=== PATIENT | male | born 1985 | race Caucasian/White ===

== ENCOUNTER 2023-04-06 07:03 | Inpatient (IN) | payer OTHER ==
[~2023-04-06] VITALS: Ht 175.3 cm; Wt 72.4 kg
[2023-04-06 08:54] LABS: BASOPHILS ABSOLUTE AUTO 0.03 K/mm3 (0.00-0.23); BASOPHILS PERCENT AUTO 0 % (0-2); EOSINOPHILS ABSOLUTE AUTO 0.08 K/mm3 (0.00-0.68); EOSINOPHILS PERCENT AUTO 1 % (0-6); Hematocrit 38.6 % (37.0-53.0); Hemoglobin 13.2 g/dL (13.5-17.5); IMMATURE GRAN ABSOLUTE AUTO 0.05 K/mm3 (0.00-0.10); IMMATURE GRAN PERCENT AUTO 0 % (0-1); LYMPHOCYTES ABSOLUTE AUTO 1.46 K/mm3 (0.84-5.20); LYMPHOCYTES PERCENT AUTO 9 % (21-46); MONOCYTES ABSOLUTE AUTO 1.28 K/mm3 (0.16-1.47); MONOCYTES PERCENT AUTO 8 % (4-13); Mean Corpuscular HGB 29.2 pg (26.0-34.0); Mean Corpuscular HGB Conc 34.2 g/dL (31.5-36.5); Mean Corpuscular Volume 85 fL (80-100); Mean Platelet Volume 10.3 fL (9.1-12.4); NEUTROPHILS ABSOLUTE AUTO 14.22 K/mm3 (1.96-9.15); NEUTROPHILS PERCENT AUTO 83 % (41-73); Platelet Count 285 K/mm3 (150-400); RDW Coefficient Variation 13.4 % (11.7-14.2); RDW Standard Deviation 41.9 fL (35.1-46.3); Red Blood Cell Count 4.52 M/mm3 (4.30-5.90); White Blood Cell Count 17.12 K/mm3 (4.00-11.30)
[2023-04-06 09:04] LABS: Bun/Creatinine Ratio 16.9 (12.0-20.0); Calcium, Blood 8.2 mg/dL (8.5-10.1); Creatinine, Blood 0.65 mg/dL (0.60-1.20)
[2023-04-06 15:31] VITALS: BP 147/83
--- NOTE | 2023-04-06 17:34 | NUR ---
PT ARRIVED FROM THE ED THIS AFTERNOON. ORIENTED TO THE ROOM. PT HAS BEEN ASLEEP SINCE ARRIVAL. HIS BED IS IN THE LOW POSITON AND CALL LIGHT IS WITIN REACH.
[2023-04-06 19:48] VITALS: BP 154/100
--- NOTE | 2023-04-06 23:30 | NUR ---
PT BROKE A SWEAT ALL LINNENS WERE SATURATED. PT STATES HE IS FEELING MUCH BETTER NOW AND ASKED FOR FOOD. PROVIDED WITH FOOD DID FULL LINNEN CHANGE. PT TOO TIRED FOR A SHOWER BUT WAS PROVIDED WITH SPONGE BATH WIPES AND HE PERFORMED HIS OWN SPUNGE BATH.
[2023-04-07 03:30] VITALS: BP 126/78
--- NOTE | 2023-04-07 04:51 | NUR ---
SHIFT SUMMARY- PT ALERT AND ORIENTED, INDEPENDENT IN THE ROOM. PT HAD AN EPISODE OF HEAVY PERSPIRATION AFTER THE FIRST DOSE OF VANCO. PROVIDED WITH BATH WIPES ANF PT TOOK A QUICK SPOUNGE BATH, LINNENS WERE CHANGED, THEN HE WAS BACK TO BED. PT IS CURRENTLY IN BED, CALL LIGHT IN REACH VANC INFUSING NO S&S OF DISTRESS.
[2023-04-07 05:01] LABS: BASOPHILS ABSOLUTE AUTO 0.02 K/mm3 (0.00-0.23); BASOPHILS PERCENT AUTO 0 % (0-2); EOSINOPHILS ABSOLUTE AUTO 0.29 K/mm3 (0.00-0.68); EOSINOPHILS PERCENT AUTO 4 % (0-6); Hemoglobin 13.1 g/dL (13.5-17.5); IMMATURE GRAN ABSOLUTE AUTO 0.02 K/mm3 (0.00-0.10); IMMATURE GRAN PERCENT AUTO 0 % (0-1); LYMPHOCYTES PERCENT AUTO 21 % (21-46); MONOCYTES ABSOLUTE AUTO 0.74 K/mm3 (0.16-1.47); MONOCYTES PERCENT AUTO 10 % (4-13); Mean Corpuscular HGB 29.8 pg (26.0-34.0); Mean Corpuscular HGB Conc 34.5 g/dL (31.5-36.5); Mean Corpuscular Volume 86 fL (80-100); Mean Platelet Volume 10.3 fL (9.1-12.4); NEUTROPHILS ABSOLUTE AUTO 4.85 K/mm3 (1.96-9.15); NEUTROPHILS PERCENT AUTO 64 % (41-73); Platelet Count 216 K/mm3 (150-400); RDW Coefficient Variation 13.5 % (11.7-14.2); RDW Standard Deviation 42.9 fL (35.1-46.3); White Blood Cell Count 7.52 K/mm3 (4.00-11.30)
[2023-04-07 05:30] LABS: Bun/Creatinine Ratio 15.6 (12.0-20.0); Calcium, Blood 8.2 mg/dL (8.5-10.1); Creatinine, Blood 0.64 mg/dL (0.60-1.20); Potassium, Blood 3.7 mmol/L (3.5-5.5)
[2023-04-07 07:47] VITALS: BP 144/102
--- NOTE | 2023-04-07 10:04 | NUR ---
24 hr urine collection started.
[2023-04-07 13:41] LABS: Vancomycin, Trough 11.7 ug/mL (5.0-10.0)
[2023-04-07 16:03] VITALS: BP 142/90
--- NOTE | 2023-04-07 18:11 | NUR ---
SHIFT SUMMARY IS A&O X 4. VSS. IS INDEPENDENT IN THE ROOM FOR RESTROOM USE, PT SHOWERED TODAY. NEW IV STARTED IN R FA WITH 20G X 1 ATTEMPT, PREVIOUS IV INFILTRATED. IS RECEIVING IV ANTIBIOTICS PER MD ORDER. L AC ABSCESS SITE JAMI & SCABBED S/P LANCING OF ABSCESS BY MD IN ER. HAS RESTED QUIETLY MOST OF SHIFT WITH EYES CLOSED, RESP EVEN & UNLABORED. DENIED PAIN, SOB & NAUSEA. AWAITING CULTURE RESULTS. PLAN IS DC HOME ONCE CLINICALLY STABLE.
[2023-04-07 19:46] VITALS: BP 139/89
--- NOTE | 2023-04-08 04:59 | NUR ---
SHIFT SUMMARY; NO ACUTE CHANGES OVERNIGHT. THE PT IS AXO X4 AND INDEPENDENT IN THE ROOM. THE PT HAS BEEN SLEEPING IN BED FOR THE ENTIRETY OF THE NIGHT. THE PT DENIES ANY CHEST PAIN/PRESSURE, N/V, SOB OR PAIN. CURRENTLY THE PT IS SLEEPING IN BED WITH THE BED IN THE LOWEST POSITION AND THE CALL LIGHT AT BEDSIDE. FIRE SAFETY MAINTAINED T/O THE NIGHT.
[2023-04-08 05:01] VITALS: BP 154/92
[2023-04-08 05:18] LABS: Hematocrit 41.8 % (37.0-53.0); Hemoglobin 14.1 g/dL (13.5-17.5); Mean Corpuscular HGB 29.1 pg (26.0-34.0); Mean Corpuscular HGB Conc 33.7 g/dL (31.5-36.5); Mean Corpuscular Volume 86 fL (80-100); Mean Platelet Volume 10.3 fL (9.1-12.4); Platelet Count 262 K/mm3 (150-400); RDW Coefficient Variation 13.3 % (11.7-14.2); RDW Standard Deviation 41.9 fL (35.1-46.3); Red Blood Cell Count 4.85 M/mm3 (4.30-5.90); White Blood Cell Count 6.68 K/mm3 (4.00-11.30)
[2023-04-08 05:36] LABS: Bun/Creatinine Ratio 18.4 (12.0-20.0); Calcium, Blood 8.4 mg/dL (8.5-10.1); Creatinine, Blood 0.6 mg/dL (0.60-1.20); Potassium, Blood 4.2 mmol/L (3.5-5.5)
[2023-04-08 07:55] VITALS: BP 148/97
[2023-04-08 14:46] LABS: Vancomycin, Trough 18.1 ug/mL (5.0-10.0)
--- NOTE | 2023-04-08 16:18 | NUR ---
PT IS A/OX4, PLEASANT AND COOPERATIVE. THE PT IS UP IN HIS ROOM IND. THE PT WAS MEDICATED FOR PAIN X1. PTS LEFT ARM ABCESS HAD SOME PURILANT DRAINAGE TODAY. WOUND IS OPEN TO AIR. PT APPEARS TO BE BREATHING EASILY ON RA AT THIS TIME. CALL LIGHT IN REACH. WILL CONTINUE TO MONITOR AND ASSESS FOR CHANGES
[2023-04-08 16:52] VITALS: BP 144/94
[2023-04-08 20:34] VITALS: BP 146/76
[2023-04-09 03:46] VITALS: BP 136/82
--- NOTE | 2023-04-09 05:19 | NUR ---
SHIFT SUMMARY; NO ACUTE CHANGES OVERNIGHT. THE PT IS AXO X4 AND INDEPENDENT IN THE ROOM. THE PT HAS BEEN SLEEPING FOR THE ENTIRETY OF THE NIGHT. THE PTS L ARM ABCESS HAS HAD MINIMAL DRAINAGE OVERNIGHT. IT IS OPEN TO AIR. THE PT STATES THAT HE BELIEVES IT IS GETTING REDDER AND HE FEELS LIKE THE SURRONDING SKIN IS TIGHT/SWOLLEN. THE PT OTHERWISE DENIES ANY CHEST PAIN/PRESSURE, SOB, PAIN AND OR N/V. CURRENTLY THE PT IS SLEEPING IN BED WITH THE BED IN THE LOWEST POSITION AND THE CALL LIGHT AT BEDSIDE. FIRE SAFETY MAINTAINED T/O THE NIGHT.
[2023-04-09 08:46] VITALS: BP 133/90
--- NOTE | 2023-04-09 09:00 | NUR ---
Pt laying in bed awake a/ox4, pleasant and cooperative with care, follows commands well, denies pain, slept well, lungs are clear t/o, resp even and unlabored, no cough noted, hrr, no edema noted, ppp+2, cap refill <3sec, vs stable, afebrile, iv sites to rfa site is clear and patent, btx4, abd flat soft nontender, voids without diff, skin has wound to left fa around elbow, with a small piec of packing sticking out, mairaida, up ad leatha in room, mandie, call light in reach.
[2023-04-09] MEDS ORDERED: ACET325 PO (12:19)
[2023-04-09] MEDS ORDERED: LACT PO (12:24)
[2023-04-09] MEDS ORDERED: CEFU500T30 PO (12:28)
--- NOTE | 2023-04-09 14:20 | NUR ---
Pt has been discharged to home, removed packing from arm wound, drained some puss, cleansed with sure cleans, dried with 4x4's, placed mepilex on. iv removed intact, went over discharge instructions with him, he verbalized understanding, new meds were faxed to [email or web address], pt left with his belongings.
== END 2023-04-09 14:23 | disposition home or self-care (01) | DRG 603 ==
LOC: ER 07:03 → MEDS 10:54
PROVIDERS: Internal Medicine; Physician Assistant; ADMIT Internal Medicine
PROC: 0J9F0ZZ Drainage of Left Upper Arm Subcutaneous Tissue and Fascia, Open Approach (ICD-10-PCS; principal; 2023-04-06)
DX: L02.414 Cutaneous abscess of left upper limb (principal); L03.114 Cellulitis of left upper limb; I10 Essential (primary) hypertension; B95.4 Other streptococcus as the cause of diseases classified elsewhere; F15.10 Other stimulant abuse, uncomplicated
CPT/HCPCS: 10061; 36415; 73201; 80048; 80202; 85025; 85027; 87070; 87075; 87147; 87205; 96365-59; 96375-59; 99285-25; A9270; J0690; J1650; J3370; J7050; Q9967